=== PATIENT | female | born 1965 | race American Indian/Alaskan Native ===

== ENCOUNTER 2016-08-17 20:05 | Emergency (ER) | payer OTHER ==
[2016-08-17] MEDS ORDERED: CATAPRES PO ONE (20:22)
[2016-08-17 20:52] LABS: Basophils % (Auto) 0.8 % (0.0-1.8); Eosinophils % (Auto) 2.3 % (0.0-4.3); Hematocrit 39.2 % (30.3-42.9); Mean Corpuscular HGB Conc 33 % (30-34); Mean Corpuscular Hemoglobin 30 pg (28-32); Mean Corpuscular Volume 91 fl (79-97); Platelet Count 157 K/mm3 (140-440); Red Blood Count 4.32 M/mm3 (3.65-5.03); Red Cell Distribution Width 13.1 % (13.2-15.2); White Blood Count 6.8 K/mm3 (4.5-11.0)
[2016-08-17 21:08] LABS: Anion Gap 19 mmol/L; BUN/Creatinine Ratio 21.42; Blood Urea Nitrogen 15 mg/dL (7-17); Calcium 9.5 mg/dL (8.4-10.2); Carbon Dioxide 22 mmol/L (22-30); Chloride 102.7 mmol/L (98-107); Glucose 100 mg/dL (65-100); Potassium 3.9 mmol/L (3.6-5.0); Sodium 140 mmol/L (137-145)
--- NOTE | 2016-08-17 22:08 | Emergency Department Report ---
ED Shortness of Breath HPI - General Chief Complaint: Dyspnea/Respdistress Stated Complaint: TROUBLE BREATHING Time Seen by Provider: 08/17/16 21:56 Source: patient Mode of arrival: Ambulatory Limitations: No Limitations - History of Present Illness Initial Comments: Patient is a 51-year-old female with history of hypertension presenting with dyspnea 2 days. Patient reports she did some yard work 3 days ago and subsequently the following day she had a cough and increasing shortness of breath with the cough. Patient denies shortness of breath at any other time. Also reports she's been noncompliant with her hypertension medication due to insurance and primary follow-up. She denies history of asthma or COPD, patient is a 4 cigarette a day smoker. Otherwise no fevers, chills, vomiting, headache , chest pain, abdominal pain, travel, trauma, sick contacts MD Complaint: shortness of breath, cough - Related Data Previous Rx's Medication Instructions Recorded Last Taken Type ALBUTEROL Inhaler [ProAir HFA 1 puff IH Q4HR PRN #1 inha 08/18/16 Unknown Rx Inhaler] amLODIPine [Norvasc] 5 mg PO DAILY #30 tablet 08/18/16 Unknown Rx Allergies Allergy/AdvReac Type Severity Reaction Status Date / Time No Known Allergies Allergy Verified 04/20/16 01:58 ED Review of Systems ROS: Stated complaint: TROUBLE BREATHING Other details as noted in HPI Comment: All other systems reviewed and negative ED Past Medical Hx - Past Medical History Previous Medical History?: Yes Hx Hypertension: Yes - Surgical History Past Surgical History?: Yes Additional Surgical History: x1 - Social History Smoking Status: Current Every Day Smoker Substance Use Type: Alcohol - Medications Home Medications: Home Medications Medication Instructions Recorded Confirmed Last Taken Type ALBUTEROL Inhaler [ProAir HFA 1 puff IH Q4HR PRN #1 inha 08/18/16 Unknown Rx Inhaler] amLODIPine [Norvasc] 5 mg PO DAILY #30 tablet 08/18/16 Unknown Rx ED Physical Exam - General Limitations: No Limitations General appearance: alert, in no apparent distress - Head Head exam: Present: atraumatic, normocephalic - Eye Eye exam: Present: normal appearance - ENT ENT exam: Present: mucous membranes moist - Neck Neck exam: Present: normal inspection - Respiratory Respiratory exam: Present: decreased breath sounds (at the R lung base). Absent : respiratory distress, wheezes, rales - Cardiovascular Cardiovascular Exam: Present: regular rate, normal rhythm. Absent: systolic murmur, diastolic murmur, rubs, gallop - GI/Abdominal GI/Abdominal exam: Present: soft, normal bowel sounds - Extremities Exam Extremities exam: Present: normal inspection - Back Exam Back exam: Present: normal inspection - Neurological Exam Neurological exam: Present: alert, oriented X3 - Psychiatric Psychiatric exam: Present: normal affect, normal mood - Skin Skin exam: Present: warm, dry, intact, normal color. Absent: rash ED Course Vital Signs 08/17/16 08/17/16 08/17/16 20:10 20:27 21:46 Temperature 97.9 F Pulse Rate 105 H 105 H Respiratory 26 H 11 L Rate Blood Pressure 204/144 204/144 Blood Pressure [Left] O2 Sat by Pulse 98 97 Oximetry 08/17/16 08/17/16 08/17/16 21:58 22:00 22:04 Temperature Pulse Rate 89 88 Respiratory 17 25 H Rate Blood Pressure 179/107 Blood Pressure 164/97 [Left] O2 Sat by Pulse 100 Oximetry 08/17/16 08/17/16 08/17/16 22:11 22:21 22:30 Temperature Pulse Rate 90 89 88 Respiratory 17 29 H 27 H Rate Blood Pressure 164/97 176/114 181/108 Blood Pressure [Left] O2 Sat by Pulse 98 97 94 Oximetry 08/17/16 08/17/16 08/17/16 22:41 22:51 23:00 Temperature Pulse Rate 83 83 83 Respiratory 27 H 26 H 24 Rate Blood Pressure 176/114 170/106 163/99 Blood Pressure [Left] O2 Sat by Pulse 95 95 94 Oximetry 08/17/16 08/17/16 08/17/16 23:11 23:21 23:30 Temperature Pulse Rate 81 83 80 Respiratory 27 H 28 H 26 H Rate Blood Pressure 170/106 169/98 154/95 Blood Pressure [Left] O2 Sat by Pulse 95 97 91 Oximetry 08/17/16 08/17/16 23:41 23:51 Temperature Pulse Rate 83 82 Respiratory 25 H 27 H Rate Blood Pressure 163/99 157/96 Blood Pressure [Left] O2 Sat by Pulse 94 93 Oximetry ED Medical Decision Making - Lab Data Result diagrams: 08/17/16 20:35 08/17/16 20:35 - EKG Data -: EKG Interpreted by Me (20:23) EKG shows normal: sinus rhythm, axis (normal axis), intervals (QTC 496 ms appears less than half of the RR interval), QRS complexes (LVH), ST-T waves ( left atrial enlargement no ST changes no STEMI) Rate: tachycardia (107 bpm) Critical care attestation.: If time is entered above; I have spent that time in minutes in the direct care of this critically ill patient, excluding procedure time. ED Disposition Clinical Impression: Dyspnea, Cough Disposition: DISCHARGED TO HOME OR SELFCARE Is pt being admited?: No Condition: Stable Instructions: Dyspnea (ED), Cold Symptoms (ED) Prescriptions: ALBUTEROL Inhaler [ProAir HFA Inhaler] 1 puff IH Q4HR PRN #1 inha PRN Reason: shortness of breath amLODIPine [Norvasc] 5 mg PO DAILY #30 tablet Referrals: PRIMARY CARE, [Primary Care Provider] - 3-5 Days
[2016-08-17] MEDS ORDERED: DECADRON IM ONE (22:47)
--- NOTE | 2016-08-17 22:49 | XRay Report ---
FINAL REPORT EXAM: XR CHEST ROUTINE 2V HISTORY: Shortness of breath TECHNIQUE: Two view chest PA and lateral PRIORS: None. FINDINGS: Cardiac silhouette is moderately enlarged. No focal pulmonary infiltrate is identified. No pleural fluid collection seen. Pulmonary vasculature is unremarkable. IMPRESSION: Negative two-view chest
[2016-08-18 00:01] VITALS: BP 157/96
== END 2016-08-18 00:19 | disposition home or self-care (01) ==
LOC: ED 20:05
DX: R06.00 Dyspnea, unspecified (principal); R05 Cough; I10 Essential (primary) hypertension; F17.200 Nicotine dependence, unspecified, uncomplicated
CPT/HCPCS: 36415; 71020; 80048; 83880; 84484; 85025; 93005; 93010; 96372; 99284; J1100